=== PATIENT | female | born 1995 | race African-American/Black ===

== ENCOUNTER 2017-03-22 06:53 | Emergency (ER) | payer MEDICAID ==
[2017-03-22] MEDS ORDERED: Fluorescein Opthalmic Strip ONE (07:10)
[2017-03-22] MEDS ORDERED: Ibuprofen 200 MG TAB ONE (07:37)
== END 2017-03-22 07:41 | disposition home or self-care (01) ==
LOC: BURERS 06:53
DX: T20.10XA Burn of first degree of head, face, and neck, unspecified site, initial encounter (principal); X11.8XXA Contact with other hot tap-water, initial encounter
CPT/HCPCS: 99283